=== PATIENT | female | born 1990 | race Caucasian/White ===

== ENCOUNTER 2016-10-26 14:04 | Emergency (ER) | payer OTHER ==
[~2016-10-26] VITALS: Ht 165.1 cm; Wt 110.8 kg
[2016-10-26 15:44] LABS: ADD MIUA? NO; BILIRUBIN NEGATIVE; BLOOD NEGATIVE; COLOR COLORLESS ((YELLOW)); GLUCOSE (STRIP) NEGATIVE; KETONES NEGATIVE; LEUKOCYTES NEGATIVE; NITRITE NEGATIVE; PROTEIN (STRIP) NEGATIVE; SPECIFIC GRAVITY 1.002 (1.000-1.030); UCUL ADDED? NO; UROBILINOGEN 0.2 MG/DL (0.2-1.0)
[2016-10-26] MEDS ORDERED: ATARAX,VISTARIL25 MG PO ×2 (17:05→17:13)
[2016-10-26] MEDS ORDERED: SAVELLA50 MG PO (17:07)
[2016-10-26] MEDS ORDERED: MELOXICAM15 MG PO (17:08)
[2016-10-26] MEDS ORDERED: SULFASALAZINE500 MG PO (17:08)
[2016-10-26] MEDS ORDERED: FLUTICASONE PRO16 GM BOTH NARES (17:09)
[2016-10-26 17:17] VITALS: BP 176/108
== END 2016-10-26 17:00 | disposition home or self-care (01) ==
LOC: EME 14:04
DX: F41.9 Anxiety disorder, unspecified (principal); F33.1 Major depressive disorder, recurrent, moderate; Z88.6 Allergy status to analgesic agent; F17.200 Nicotine dependence, unspecified, uncomplicated
CPT/HCPCS: 81003; 90839; 99281; 99283

== ENCOUNTER 2017-03-23 19:37 | Emergency (ER) | payer OTHER ==
[~2017-03-23] VITALS: Ht 167.6 cm; Wt 108.7 kg
[~2017-03-23 19:37] MED LIST: ATARAX,VISTARIL25 MG PO; FLUTICASONE PRO16 GM BOTH NARES; MELOXICAM15 MG PO; SAVELLA50 MG PO; SULFASALAZINE500 MG PO
[2017-03-23] MEDS ORDERED: VISTARIL50 MG PO (21:02)
[2017-03-23] MEDS ORDERED: PROZAC20 MG PO (21:02)
[2017-03-23 21:50] VITALS: BP 171/99
== END 2017-03-23 22:11 | disposition home or self-care (01) ==
LOC: EME 19:37
DX: F32.9 Major depressive disorder, single episode, unspecified (principal); M79.7 Fibromyalgia; F41.9 Anxiety disorder, unspecified; M06.9 Rheumatoid arthritis, unspecified; F17.200 Nicotine dependence, unspecified, uncomplicated; Z88.5 Allergy status to narcotic agent; Z88.6 Allergy status to analgesic agent; Z88.8 Allergy status to other drugs, medicaments and biological substances
CPT/HCPCS: 90832; 99281; 99283; Q0177

== ENCOUNTER 2017-07-14 23:09 | Emergency (ER) | payer OTHER ==
[~2017-07-14] VITALS: Ht 165.1 cm; Wt 112.0 kg
[~2017-07-14 23:09] MED LIST changes: +PROZAC20 MG PO; +VISTARIL50 MG PO
[2017-07-15 00:51] VITALS: BP 127/99
== END 2017-07-15 00:51 | disposition home or self-care (01) ==
LOC: EME 23:09
DX: S60.221A Contusion of right hand, initial encounter (principal); S80.01XA Contusion of right knee, initial encounter; S80.02XA Contusion of left knee, initial encounter; W00.0XXA Fall on same level due to ice and snow, initial encounter; F17.200 Nicotine dependence, unspecified, uncomplicated
CPT/HCPCS: 73130; 73564; 99281; 99283